=== PATIENT | female | born 1950 | race Two or more races ===

== ENCOUNTER 2018-04-18 06:41 | Day surgery (SDC) | payer MEDICARE, MEDICAID ==
--- NOTE | 2018-04-15 11:50 | Pre-Procedure Note/Attestation ---
Pre-Procedure Note/Attestation Complete Prior to Procedure Planned Procedure: left Procedure Narrative: phaco with IOL Indications for Procedure Pre-Operative Diagnosis: cataract Attestation I attest that I discussed the nature of the procedure; its benefits; risks and complications; and alternatives (and the risks and benefits of such alternatives ), prior to the procedure, with the patient (or the patient's legal client representative). I attest that, if there was a reasonable possibility of needing a blood transfusion, the patient (or the patient's legal client representative) was given the [facility] standardized written summary, pursuant to the Hema Catarina Blood Safety Act ([place] Health and Safety Code # 1645, as amended). I attest that I re-evaluated the patient just prior to the surgery and that there has been no change in the patient's H&P, except as documented below: ZAID NAVARRO Apr 15, 2018 11:50
--- NOTE | 2018-04-15 11:53 | Opthalmology H&P ---
Ophthalmology H&P H&P Chief Complaint: decreased vision in left eye HPI Vision Affects Ability to: read, focus/use eyes together HPI Narrative blurry vision Exam Visual Acuity: OD: 20/40 OS: 20/60 Tension: OD: 14 OS: 13 Eye Exam: normal OU: external exam, palpebral fissure-width, marginal reflex distance, levator function, corneas, anterior chambers; findings: lens - OD:ns OS: ns, fundus exam - ARMD OU Assessment/Plan Diagnosis: (1) Nuclear sclerotic cataract of left eye Treatment Plan: cataract extraction w/ lens implant Goals of Treatment: improvement of vision, enhance quality of life Attestation Attestation The risks and benefits of the surgery as well as alternative procedures were explained to the patient in detail. ZAID NAVARRO Apr 15, 2018 11:53
[~2018-04-18] VITALS: Ht 165.1 cm; Wt 84.8 kg
[2018-04-18] VITALS (10 sets, daily range): BP systolic 128–149; BP diastolic 50–74
[2018-04-18] MEDS ORDERED: Tetracaine 0.5% Opth 4ml Soln LEFT EYE ONE (07:00)
[2018-04-18] MEDS ORDERED: Akten 3.5% 1ml Btl LEFT EYE ONE (07:00)
[2018-04-18] MEDS ORDERED: Pilocarpine 2% Opth 15ml Soln ONE (07:00)
[2018-04-18] MEDS ORDERED: Pred Forte 1% Opth Susp 1ml ONE (07:00)
[2018-04-18] MEDS ORDERED: Proparacaine 0.5% Opth Soln 15ml LEFT EYE ONE (07:00)
[2018-04-18] MEDS ORDERED: Maxitrol Opth Oint 3.5gm ONE (07:00)
[2018-04-18] MEDS ORDERED: Dexamethasone 4mg/ml vial ONE (07:00)
[2018-04-18] MEDS ORDERED: PREDNISONE10 MG ORAL (10:00)
[2018-04-18] MEDS ORDERED: OMEPRAZOLE20 M2 ORAL (10:03)
[2018-04-18] MEDS ORDERED: METHOTREXATE2.5 MG PO (10:03)
[2018-04-18] MEDS ORDERED: FOLIC ACID1 MG ORAL (10:04)
[2018-04-18] MEDS: Cyclopentolate 1% Opth Sol 2ml LEFT EYE SCH ×3 (10:06→10:19)
[2018-04-18] MEDS: Tropicamide 1% Opth 15ml Soln LEFT EYE SCH ×3 (10:06→10:19)
[2018-04-18] MEDS: Phenylephrine 10% Opth Soln 5ml LEFT EYE SCH ×3 (10:07→10:19)
[2018-04-18] MEDS: Tobramycin Op Soln 0.3% 5ml LEFT EYE SCH ×3 (10:08→10:19)
[2018-04-18] MEDS: Diclofenac Sod 0.1% Op Soln LEFT EYE SCH ×3 (10:08→10:20)
[2018-04-18] MEDS ORDERED: BSS 500ml btl ONE (11:20)
[2018-04-18] MEDS ORDERED: EPINEPHrine 1mg/1ml Amp ONE (11:20)
[2018-04-18] MEDS ORDERED: Sodium Hyaluronate 14 mg/ml 0.85ml ONE (11:21)
[2018-04-18] MEDS ORDERED: BSS 15ml BTL ONE (11:21)
[2018-04-18] MEDS ORDERED: Povidone-Iodine 5% opth solution ONE (11:21)
[2018-04-18] MEDS ORDERED: Atropine Inj 1mg/10ml Syr IV PRN (11:30)
[2018-04-18] MEDS ORDERED: LR 1000ml ONE (11:30)
[2018-04-18] MEDS ORDERED: Labetalol 5mg/ml 20ml vial IV PRN (11:30)
[2018-04-18] MEDS ORDERED: DiphenhydrAMINE 50mg/ml Inj IVP PRN (11:30)
[2018-04-18] MEDS ORDERED: LR 1000ml 1,000 ML IVLG SCH (11:30)
[2018-04-18] MEDS ORDERED: Sterile Water Irrig 1000ml IRRIG ONE (11:30)
[2018-04-18] MEDS ORDERED: fentaNYL 100 mcg/2 mL IV PRN (11:30)
[2018-04-18] MEDS ORDERED: NS Irrig 1000ml ONE (11:30)
[2018-04-18] MEDS ORDERED: Midazolam 2mg/2ml Inj IVP PRN (11:30)
--- NOTE | 2018-04-18 11:38 | Anethesia Preoperative Eval ---
Anesthesia Pre-op PMH/ROS General Date of Evaluation: Apr 18, 2018 Time of Evaluation: 11:26 Anesthesiologist: kai ASA Score: ASA 3 Mallampati Score Class I : Soft palate, uvula, fauces, pillars visible Class II: Soft palate, uvula, fauces visible Class III: Soft palate, base of uvula visible Class IV: Only hard plate visible Mallampati Classification: Class II Surgeon: peter Diagnosis: cataract left eye Surgical Procedure: cataract extraction w/ iol implant os Anesthesia History: none Social History: smoking - former smoker Family History: no anesthesia problems Allergies: Coded Allergies: No Known Allergies (Unverified , 04/15/18) Past Medical History Gastrointestinal/Genitourinary: Reports: GERD Hematology/Immune: Reports: other - lupus Musculoskeletal/Integumentary: Reports: other - gout Anesthesia Pre-op Phys. Exam Physician Exam Last Vital Signs Date Time Temp Pulse Resp B/P (MAP) Pulse Ox O2 Delivery O2 Flow Rate FiO2 04/18/18 10:20 97.6 56 18 128/67 (87) 97 97.6 Constitutional: NAD Neurologic: CN 2-12 intact Cardiovascular: RRR Respiratory: CTA Gastrointestinal: S/NT/ND Airway Exam Mallampati Score: Class II MO: limited Neck: supple TMD: 2fb ROM: limited Dentures: upper, lower Anesthesia Pre-op A/P Risk Assessment & Plan Assessment: asa3 Plan: mac Status Change Before Surgery: No Pre-Antibiotics Drug: Ambar Goldberg MD Apr 18, 2018 11:38
--- NOTE | 2018-04-18 12:28 | Immediate Post-Op Evaluation ---
Immediate Post-Op Evalulation Immediate Post-Op Evalulation Procedure: cataract extraction w/ iol os Date of Evaluation: Apr 18, 2018 Time of Evaluation: 12:24 IV Fluids: 700ml lr Blood Products: none Estimated Blood Loss: negligible Blood Pressure Systolic: 149 Blood Pressure Diastolic: 56 Pulse Rate: 66 Respiratory Rate: 18 O2 Sat by Pulse Oximetry: 100 Temperature (Fahrenheit): 97.0 Pain Score (1-10): 0 Nausea: No Vomiting: No Complications none Patient Status: awake, reacts, patent Hydration Status: adequate Drug: Ambar Goldberg MD Apr 18, 2018 12:28
--- NOTE | 2018-04-18 12:29 | 48 Hour Post Anesthesia Eval ---
Post Anesthesia Evaluation Procedure: cataract extraction w/ iol os Date of Evaluation: Apr 18, 2018 Time of Evaluation: 12:26 Blood Pressure Systolic: 144 0: 68 Pulse Rate: 66 Respiratory Rate: 18 Temperature (Fahrenheit): 97.0 O2 Sat by Pulse Oximetry: 99 Airway: patent Nausea: No Vomiting: No Pain Intensity: 0 Hydration Status: adequate Cardiopulmonary Status: stable Mental Status/LOC: patient returned to baseline Post-Anesthesia Complications: none Follow-up care needed: N/A Ambar Pacheco MD Apr 18, 2018 12:29
--- NOTE | 2018-04-20 15:00 | Operative Note - PDOC ---
Operative Note Operative Note Date of Operation/Procedure: Apr 18, 2018 Chief Complaint: blurry vison Pre-op Diagnosis: cataract,OS Procedure: phaco with IOL Post-op Diagnosis: Pseudophakia Post-op Diagnosis: same as pre-op Operative Findings: consistent w/pre-op dx studies Surgeon: Magali Anesthesiologist: Anderson Gómez Anesthesia: MAC Specimen: none Complications: none Condition: stable Fluids: LR Estimated Blood Loss: none Drains: none Implant(s) used?: Yes Indications for Procedure cataract Description of Procedure This patient has been complaining visually significant cataract in the affected eye with the best corrected visual acuity under moderate glare conditions worse. The patient complains of difficulties with glare in performing activities of daily living and wants to manage personal affairs with comfort and accuracy and see well enough to move with safety at home and outdoors. The risks, benefits and alternatives of the procedure were discussed with the patient in the office prior to scheduling surgery. All questions from the patient were answered after the surgical procedure was explained in detail. The risks of the procedure as explained to the patient include, but are not limited to, pain, infection, bleeding, loss of vision, retinal detachment, need for further surgery, loss of lens nucleus, double vision, etc. Alternative procedures were discussed which include, to do nothing or seek a second opinion. Informed consent for this procedure was obtained from the patient. The patient was referred to a primary care physician for a cardiopulmonary clearance prior to surgery, after proper evaluation was done patient was properly scheduled for outpatient surgery. The patient was brought to the operating room where the anesthesiologist established I.V. lines and cardiac monitoring leads. Mild intravenous sedation was administered. The patient was then prepared with a 5% solution of povidone -iodine to the conjunctival fornix and lashes, and a 5% solution of povidone- iodine to the lids and periorbital skin. The patient was then draped in the usual sterile fashion. A lid speculum was then placed in the operative eye. A keratome blade was then used to create a biplanar incision into the anterior chamber. Viscoelastics was then instilled into the anterior chamber. A 3-mm single pass clear corneal incision was made just anterior to the vascular arcade of the temporal limbus using a keratome. Anterior capsulorrhexis was created. The nucleus was hydrodissected and hydrodelineated, and was freely movable in the capsular bag. The nucleus was then phacoemulsified. Following the deep groove formation, the lens was split bimanually and epicortex removed under vacuum burst-mode phacoemulsification. Peripheral cortex was removed with the irrigation and aspiration handpiece. The capsular bag was expanded with viscoelastic. The intraocular lens was then inspected for right power and size and thought to be satisfactory. The implant was inspected under the microscope and found to be free of defects. The implant was inserted into the cartridge system under viscoelastic and placed in the capsular bag. The trailing haptic was positioned with the cartridge system. Viscoelastics was removed from the anterior chamber using the irrigation and aspiration unit. The corneal wound was then tested for leaks and none were found. The lid speculum were then removed. Sponge and needle counts were correct. An eye patch and shield were placed over the operative eye. The patient was taken to the recovery room in stable condition. There were no complications. The patient tolerated the procedure well. The patient was then transferred to the ambulatory surgery unit in stable and satisfactory condition , was given detailed written instructions and asked to follow up in the office the next day. ZAID NAVARRO Apr 20, 2018 15:00
--- NOTE | 2018-04-20 15:00 | Brief Operative Note ---
Immediate Post Operative Note Operative Note Chief Complaint: blurry vison Pre-op Diagnosis: cataract,OS Procedure: phaco with IOL Post-op Diagnosis: Pseudophakia Post-op Diagnosis: same as pre-op Findings: consistent w/pre-op dx studies Surgeon: Magali Anesthesiologist: Anderson Gómez Anesthesia: MAC Specimen: none Complications: none Condition: stable Fluids: LR Estimated Blood Loss: none Drains: none Implant(s) used?: Yes ZAID NAVARRO Apr 20, 2018 15:00
== END 2018-04-18 13:40 | disposition home or self-care (01) ==
LOC: SUR 06:41
DX: H25.12 Age-related nuclear cataract, left eye (principal); E78.00 Pure hypercholesterolemia, unspecified; M10.9 Gout, unspecified; K21.9 Gastro-esophageal reflux disease without esophagitis; M32.9 Systemic lupus erythematosus, unspecified; E66.9 Obesity, unspecified; H54.7 Unspecified visual loss; N81.4 Uterovaginal prolapse, unspecified; Z86.19 Personal history of other infectious and parasitic diseases
CPT/HCPCS: 66984; J0171; J1100; J3010; J3370; J7120; V2632; 94003; 94150

== ENCOUNTER → 2018-09-05 | Day surgery (SDC) | payer MEDICARE, BC ==
[2018-09-01 10:07] LABS: BASOPHILS % (AUTO) 0.6 % (0.0-2.0); EOSINOPHILS % (AUTO) 0.2 % (0.0-3.0); HEMATOCRIT 38.4 % (37.0-47.0); HEMOGLOBIN 13.1 G/DL (12.0-16.0); LYMPHOCYTES % (AUTO) 13.5 % (20.0-45.0); MEAN CORPUSCULAR VOLUME 94 FL (80-99); MONOCYTES % (AUTO) 6.3 % (1.0-10.0); NEUTROPHILS % (AUTO) 79.5 % (45.0-75.0); PLATELET COUNT 183 K/UL (150-450); RED CELL DISTRIBUTION WIDTH 14.4 % (11.6-14.8); WHITE BLOOD COUNT 5.8 K/UL (4.8-10.8)
[2018-09-01 10:13] LABS: ANION GAP 9 mmol/L (5-15); BLOOD UREA NITROGEN 10 mg/dL (7-18); CALCIUM 8.9 MG/DL (8.5-10.1); CARBON DIOXIDE 27 MMOL/L (21-32); CHLORIDE 101 MMOL/L (98-107); CREATININE 0.9 MG/DL (0.55-1.30); POTASSIUM 3.4 MMOL/L (3.5-5.1); SODIUM 137 MMOL/L (136-145)
--- NOTE | 2018-09-01 13:15 | Pre-op HX & Phy Repo 2 SIG ---
DATE OF ADMISSION: 09/05/2018 PRESURGICAL INTERNAL MEDICINE HISTORY AND PHYSICAL DATE OF EVALUATION: 09/01/2018. REASON FOR EVALUATION: I was asked by Dr. Gabriel De Los Santos, to see this 68-year-old female, who is going for elective surgery on the right eye. The patient has a nuclear sclerotic cataract, right eye. The patient was examined. Chart was reviewed. The patient is a 68-year-old Romanian-speaking female, scheduled for right eye cataract extraction on September 05, 2018 at [facility]. Information obtained from the patient's daughter at bedside at [facility]. PAST MEDICAL HISTORY/REVIEW OF SYSTEMS: Remarkable for history of lupus erythematous, history of degenerative joint disease of knee, the patient use a cane to ambulate, and elevated blood sugar. The patient has no treatment for elevated blood sugar. Blood sugar elevation possible from prednisone, but this could be also diabetes steroid-induced. The patient has no history of chest pain, palpitation, or heart attack. No of hypertension. Denies history of stroke or seizures. No history of pulmonary problem, asthma, or bronchitis. Denies history of GI bleeding. The patient has liver cysts. Denies history of renal insufficiency. Urinary incontinence. No anemia. No thyroid problem. FAMILY HISTORY: Father in car accident. Mother after head injury. ALLERGIES: The patient denies allergy to medication or food. PAST SURGICAL HISTORY: Three months ago, the patient had a left eye cataract. PRESENT MEDICATIONS: Include prednisone 2.5 mg, methotrexate, folic acid, and ibuprofen. HABITS: Denies history of smoke or alcohol habits. No street drugs. PHYSICAL EXAMINATION: GENERAL: Today, the patient is alert 68-year-old female. VITAL SIGNS: Blood pressure 113/72, temperature 97.2, pulse 90, regular, respirations 20 per minute, and O2 saturation 97% on room air. HEENT: Head, normocephalic and atraumatic. Ears, clear. Eyes, full description per Dr. Gabriel De Los Santos. Mouth, clear and moist. No dentures. SKIN: Clear, dry, and warm. No rashes. No ulcers. LYMPH NODES: Not enlarged. NECK: Supple. No jugular venous distention. Carotids artery +2. Trachea midline. No palpable mass. LUNGS: Clear to auscultation to percussion. No rales or rhonchi. CHEST: No deformity or asymmetry. No mass. ABDOMEN: Soft and obese. No palpable mass. No rebound. EXTREMITIES: Degenerative joint disease of knee. No edema. No varicose vein. No calf tenderness. GENITOURINARY TRACT: Urine incontinence. CVA nontender. NERVOUS SYSTEM: No tremor. No nystagmus. DIAGNOSTIC AND LABORATORY DATA: EKG, sinus rhythm, 76 per minute, normal ECG. Lab work, potassium 3.4. Blood sugar 331 mg/dL. IMPRESSION: 1. Cataract, right eye. 2. Lupus erythematosus. 3. Diabetes mellitus, possible steroid induced, untreated. 4. The patient is on steroid, prednisone. 5. Hypokalemia. 6. Urine incontinence. PLAN: For cataract extraction, right eye per Dr. Gabriel De Los Santos. PROCEDURE: due to high blood sugar and non-treated. The patient need to see primary care physician to initiate treatment of high blood sugar. Dr. De Los Santos's office notified and the going to schedule the patient for contract processor for coming Wednesday and surgery would be arranged through Dr. Gabriel De Los Santos's office. Henry Lion M.D. DR: UMER JOB#: [id number] CC:
--- NOTE | 2018-09-02 18:08 | Cardiology Report ---
APPROVED REPORT EKG Measurement Heart [id number] Normal sinus rhythm Normal ECG
[~2018-09-05] MED LIST: FOLIC ACID1 MG ORAL; METHOTREXATE2.5 MG PO; OMEPRAZOLE20 M2 ORAL; PREDNISONE10 MG ORAL
== END | disposition home or self-care (01) ==
LOC: SUR 08:55
DX: H25.11 Age-related nuclear cataract, right eye (principal); Z53.09 Procedure and treatment not carried out because of other contraindication; E11.65 Type 2 diabetes mellitus with hyperglycemia; M32.9 Systemic lupus erythematosus, unspecified; E87.6 Hypokalemia; R32 Unspecified urinary incontinence; Z01.818 Encounter for other preprocedural examination
CPT/HCPCS: 36415; 80048; 85025; 93005